=== PATIENT | male | born 1945 | race Caucasian/White ===

== ENCOUNTER 2017-11-02 07:45 | Day surgery (SDC) | payer MEDICARE, MEDICAID ==
[~2017-11-02] VITALS: Ht 172.7 cm; Wt 72.6 kg
[~2017-11-02 07:45] MED LIST: ATOR10TA PO; BENZ0.5T3 PO; CALC500T62 PO; DIVA500T3 PO; DUTA0.5C2 PO; MULT-783 PO; OLAN10TA3 PO; TAMS0.4C31 PO; ZOLP5TAB2 PO
[2017-11-02] MEDS ORDERED: LACTATED RINGERS 1,000 ML IV SCH (08:15)
[2017-11-02 08:49] LABS: BASOPHILS % 0.5 % (0.0-2.0); EOSINOPHILS % 1.4 % (0.0-5.0); HEMATOCRIT. 35.4 % (42.0-52.0); HEMOGLOBIN. 11.9 g/dL (14.0-18.0); LYMPHOCYTES % 21.5 % (20.0-50.0); MEAN CORPUSCULAR VOLUME 88.9 fL (80.0-94.0); MEAN PLATELET VOLUME 9.4 fl (7.4-10.4); MONOCYTES % 10.2 % (2.0-8.0); NEUTROPHILS % 66.4 % (40.0-76.0); PLATELET 146 x1000/uL (130-400); RED BLOOD CELL COUNT 3.98 mill/uL (4.7-6.1); RED CELL DISTRIBUTION WIDTH 13.6 % (11.6-14.6)
[2017-11-02 08:49] LABS: KETONES URINE NEGATIVE (NEGATIVE); LEUKOCYTE ESTERASE URINE 3+ (NEGATIVE); NITRITE URINE POSITIVE (NEGATIVE); OCCULT BLOOD URINE NEGATIVE (NEGATIVE); PH URINE 7.5 (4.5-8.0); PROTEIN URINE NEGATIVE (NEGATIVE); SPECIFIC GRAVITY URINE 1.013 (1.005-1.030)
[2017-11-02 08:52] LABS: CLARITY URINE TURBID (CLEAR); COLOR URINE YELLOW (YELLOW)
[2017-11-02 09:19] LABS: CHLORIDE 104 mEq/L (98-107)
[2017-11-02] MEDS ORDERED: GENTAMICIN SULF 40MG/ML 2ML VIAL ONE (09:19)
[2017-11-02] MEDS ORDERED: LIDOCAINE HCL/PF 1% 10 MG/ML 5ML VIAL ONE (09:32)
[2017-11-02] MEDS ORDERED: PROPOFOL 200MG/20ML VIAL IV ONE (09:32)
[2017-11-02] MEDS ORDERED: ONDANSETRON HCL 4MG/2ML VIAL ONE (09:43)
[2017-11-02] MEDS ORDERED: DEXAMETHASONE 4MG/ML 1ML VIAL ONE (09:43)
[2017-11-02] MEDS ORDERED: EPHEDRINE SULFATE 50MG/ML VIAL ONE (10:47)
[2017-11-02] MEDS ORDERED: SODIUM CHLORIDE 0.9% 10ML VIAL ONE (10:47)
[2017-11-02] MEDS ORDERED: ROCURONIUM BROMIDE 10MG/ML VIAL 5ML IV ONE (10:49)
[2017-11-02] MEDS ORDERED: NEOSTIGMINE METHYLSULFATE 1MG/ML 10 ML VIAL ONE (11:13)
[2017-11-02] MEDS ORDERED: GLYCOPYRROLATE 0.2 MG/ML 2ML VIAL ONE (11:13)
== END 2017-11-02 13:20 | disposition home or self-care (01) ==
LOC: OR 07:45
PROVIDERS: ATTEND Urology
DX: N35.9 Urethral stricture, unspecified (principal); I10 Essential (primary) hypertension; N39.0 Urinary tract infection, site not specified; Z79.899 Other long term (current) drug therapy; F79 Unspecified intellectual disabilities; M41.9 Scoliosis, unspecified; Z87.440 Personal history of urinary (tract) infections
CPT/HCPCS: 36415; 52276; 71045; 80048; 81003; 85025; 87077; 87086; 87186; 93005; A4216; J1100; J1580; J2405; J2710; J3490; J7120; J2704

== ENCOUNTER 2019-03-16 15:48 | Emergency (ER) | payer MEDICARE, MEDICAID ==
[~2019-03-16] VITALS: Ht 170.2 cm; Wt 77.0 kg
[~2019-03-16 15:48] MED LIST changes: -BENZ0.5T3 PO; +BENZ0.5T43 PO
[2019-03-16] MEDS ORDERED: SODIUM CHLORIDE 0.9% 1,000 ML IV ONE (16:16)
[2019-03-16 16:44] LABS: BASOPHILS % 0.2 % (0.0-2.0); EOSINOPHILS % 1.1 % (0.0-5.0); HEMOGLOBIN. 11.6 g/dL (14.0-18.0); MEAN CORPUSCULAR HEMOGLOBIN 30.6 pg (28.0-32.0); MEAN CORPUSCULAR VOLUME 89.5 fL (80.0-94.0); MEAN PLATELET VOLUME 9.5 fl (7.4-10.4); MONOCYTES % 10.7 % (2.0-8.0); PLATELET 137 x1000/uL (130-400); RED CELL DISTRIBUTION WIDTH 13.8 % (11.6-14.6)
[2019-03-16 16:46] LABS: CHLORIDE 105 mEq/L (98-107)
[2019-03-16 16:51] LABS: ETHANOL BLOOD < 10 mg/dL
[2019-03-16 18:21] LABS: CLARITY URINE CLOUDY (CLEAR); COLOR URINE YELLOW (YELLOW); KETONES URINE NEGATIVE (NEGATIVE); LEUKOCYTE ESTERASE URINE 3+ (NEGATIVE); NITRITE URINE POSITIVE (NEGATIVE); OCCULT BLOOD URINE 3+ (NEGATIVE); PROTEIN URINE NEGATIVE (NEGATIVE)
[2019-03-16 18:35] LABS: *AMPHETAMINES SCREEN URINE NEGATIVE (NEGATIVE); *BARBITURATES SCREEN URINE NEGATIVE (NEGATIVE); *BENZODIAZEPINES SCREEN URINE NEGATIVE (NEGATIVE); *COCAINE SCREEN URINE NEGATIVE (NEGATIVE)
[2019-03-16 18:36] LABS: CANNABINOID URINE SCREEN NEGATIVE (NEGATIVE); METHADONE URINE SCREEN NEGATIVE (NEGATIVE); OPIATES URINE SCREEN NEGATIVE (NEGATIVE); PHENCYCLIDINE URINE SCREEN NEGATIVE (NEGATIVE)
[2019-03-16] MEDS ORDERED: AMOXICILLIN 500 MG CAPSULE PO ONE (20:15)
[2019-03-16 20:16] VITALS: BP 144/66
== END 2019-03-16 20:28 | disposition home or self-care (01) ==
LOC: ER 16:41
DX: N30.00 Acute cystitis without hematuria (principal); R53.83 Other fatigue; E78.00 Pure hypercholesterolemia, unspecified; R62.50 Unspecified lack of expected normal physiological development in childhood; I67.82 Cerebral ischemia
CPT/HCPCS: 36415; 70450; 71045; 80053; 80305; 80320; 81003; 82962; 85025; 93005; 99284; J7030; G0480

== ENCOUNTER 2022-08-12 10:17 | Emergency (ER) | payer MEDICARE, MEDICAID ==
[~2022-08-12] VITALS: Ht 170.2 cm; Wt 67.0 kg
[~2022-08-12 10:17] MED LIST changes: -ATOR10TA PO; +LEVO-65 MT
[2022-08-12 11:00] VITALS: BP 109/48
[2022-08-12] MEDS ORDERED: LIDOCAINE HCL/PF 1% 10 MG/ML 5ML VIAL INFIL ONE (12:15)
== END 2022-08-12 13:41 | disposition home or self-care (01) ==
LOC: ER 10:17
DX: S01.111A Laceration without foreign body of right eyelid and periocular area, initial encounter (principal); M25.552 Pain in left hip; W01.10XA Fall on same level from slipping, tripping and stumbling with subsequent striking against unspecified object, initial encounter; Y93.01 Activity, walking, marching and hiking; Y92.018 Other place in single-family (private) house as the place of occurrence of the external cause
CPT/HCPCS: 12011; 70450; 72125; 72170; 72192; 99284; J3490

== ENCOUNTER 2022-10-23 08:44 | Inpatient (IN) | payer MEDICARE, MEDICAID ==
[~2022-10-23] VITALS: Ht 172.7 cm; Wt 69.1 kg
[2022-10-23 09:48] LABS: BASOPHILS % 0.2 % (0.0-2.0); EOSINOPHILS % 0.1 % (0.0-5.0); HEMATOCRIT. 23.8 % (42.0-52.0); HEMOGLOBIN. 8.1 g/dL (14.0-18.0); LYMPHOCYTES % 8.1 % (20.0-50.0); MEAN CORPUSCULAR HEMOGLOBIN 30.7 pg (28.0-32.0); MEAN CORPUSCULAR VOLUME 90.4 fL (80.0-94.0); MEAN PLATELET VOLUME 9.6 fl (7.4-10.4); MONOCYTES % 13.7 % (2.0-8.0); NEUTROPHILS % 77.9 % (40.0-76.0); PLATELET 138 x1000/uL (130-400); RED BLOOD CELL COUNT 2.63 mill/uL (4.7-6.1); RED CELL DISTRIBUTION WIDTH 13.6 % (11.6-14.6)
[2022-10-23 09:53] LABS: CHLORIDE 107 mEq/L (98-107)
[2022-10-23 10:24] LABS: CLARITY URINE CLOUDY (CLEAR); COLOR URINE RED (YELLOW); KETONES URINE NEGATIVE (NEGATIVE); LEUKOCYTE ESTERASE URINE 3+ (NEGATIVE); NITRITE URINE POSITIVE (NEGATIVE); OCCULT BLOOD URINE 1+ (NEGATIVE); PH URINE 5.5 (4.5-8.0); PROTEIN URINE 1+ (NEGATIVE); SPECIFIC GRAVITY URINE 1.012 (1.005-1.030); UROBILINOGEN URINE 0.2 E.U./dL (0.2-1.0)
[2022-10-23] MEDS ORDERED: CEFTRIAXONE 1 G PREMIX 50 ML IV NR (11:15)
[2022-10-23] MEDS ORDERED: DUTASTERIDE 0.5MG CAPSULE PO SCH (12:30)
[2022-10-23] MEDS: TAMSULOSIN HCL 0.4MG SR CAPSULE PO SCH (13:21)
[2022-10-23] MEDS: SODIUM CHLORIDE 0.45% 1,000 ML IV SCH (13:58)
[2022-10-23 16:00] VITALS: BP 96/43
[2022-10-23 16:55] VITALS: BP 96/43
[2022-10-23 20:00] VITALS: BP 85/50
[2022-10-24] VITALS (9 sets, daily range): BP systolic 90–121; BP diastolic 40–72
[2022-10-24] MEDS ORDERED: SODIUM POLYSTYRENE SULFONATE 15 G/60 ML BOT PO NR (01:00)
[2022-10-24] MEDS: SODIUM CHLORIDE 0.45% 1,000 ML IV SCH ×2 (01:20→15:05)
[2022-10-24 06:07] LABS: BASOPHILS % 0.4 % (0.0-2.0); EOSINOPHILS % 1.7 % (0.0-5.0); LYMPHOCYTES % 27.7 % (20.0-50.0); MEAN CORPUSCULAR HEMOGLOBIN 30.6 pg (28.0-32.0); MEAN CORPUSCULAR VOLUME 90.4 fL (80.0-94.0); MEAN PLATELET VOLUME 10.1 fl (7.4-10.4); MONOCYTES % 14.6 % (2.0-8.0); NEUTROPHILS % 55.6 % (40.0-76.0); PLATELET 127 x1000/uL (130-400); RED BLOOD CELL COUNT 2.21 mill/uL (4.7-6.1); RED CELL DISTRIBUTION WIDTH 13.3 % (11.6-14.6)
[2022-10-24 06:45] LABS: HEMOGLOBIN. 6.8 g/dL (14.0-18.0)
[2022-10-24] MEDS: DUTASTERIDE 0.5MG CAPSULE PO SCH (10:41)
[2022-10-24] MEDS: TAMSULOSIN HCL 0.4MG SR CAPSULE PO SCH (10:41)
[2022-10-24] MEDS ORDERED: CEFTRIAXONE 1,000 MG in DEXTROSE 5% WATER 50 ML IV SCH (12:00)
[2022-10-24] MEDS: CEFTRIAXONE 1,000 MG in DEXTROSE 5% WATER 50 ML IV SCH (15:44)
[2022-10-24 20:33] LABS: TOTAL IRON BINDING CAPACITY 192 ug/dL (250-450)
[2022-10-25] VITALS: BP 129/99
[2022-10-25 00:05] VITALS: BP 98/37
[2022-10-25 01:49] LABS: HEMATOCRIT 23.3 % (42.0-52.0)
[2022-10-25 01:58] LABS: PROTHROMBIN TIME 10.8 sec (9.6-11.0)
[2022-10-25] MEDS: SODIUM CHLORIDE 0.45% 1,000 ML IV SCH (05:36)
[2022-10-25 06:52] LABS: HEMATOCRIT. 21.4 % (42.0-52.0); HEMOGLOBIN. 7.3 g/dL (14.0-18.0); MEAN CORPUSCULAR HEMOGLOBIN 30.7 pg (28.0-32.0); MEAN CORPUSCULAR VOLUME 89.7 fL (80.0-94.0); PLATELET 119 x1000/uL (130-400); RED BLOOD CELL COUNT 2.39 mill/uL (4.7-6.1); RED CELL DISTRIBUTION WIDTH 14.1 % (11.6-14.6)
[2022-10-25 08:00] VITALS: BP 111/50
[2022-10-25] MEDS: TAMSULOSIN HCL 0.4MG SR CAPSULE PO SCH (10:39)
[2022-10-25] MEDS: DUTASTERIDE 0.5MG CAPSULE PO SCH (10:39)
[2022-10-25 10:46] LABS: PLATELET ESTIMATE SLIGHTLY DECREASED
[2022-10-25 12:00] VITALS: BP 97/57
[2022-10-25] MEDS ORDERED: SODIUM CHLORIDE 0.45% 1,000 ML IV ONE (15:15)
[2022-10-25 16:00] VITALS: BP 111/54
[2022-10-25] MEDS: CEFTRIAXONE 1,000 MG in DEXTROSE 5% WATER 50 ML IV SCH (16:41)
[2022-10-25 19:54] LABS: HEMOGLOBIN 7.1 g/dL (14.0-18.0); MEAN CORPUSCULAR HEMOGLOBIN 30.6 pg (28.0-32.0); MEAN CORPUSCULAR VOLUME 89.9 fL (80.0-94.0); PLATELET 123 x1000/uL (130-400); RED BLOOD CELL COUNT 2.32 mill/uL (4.7-6.1); RED CELL DISTRIBUTION WIDTH 14.1 % (11.6-14.6)
[2022-10-25 20:00] VITALS: BP 120/51
[2022-10-25 20:19] LABS: HEMATOCRIT 20.9 % (42.0-52.0)
[2022-10-26] VITALS: BP 118/54
[2022-10-26] MEDS: SODIUM CHLORIDE 0.45% 1,000 ML IV SCH ×2 (01:14→14:47)
[2022-10-26 04:00] VITALS: BP 127/48
[2022-10-26 07:03] LABS: BASOPHILS % 0.2 % (0.0-2.0); EOSINOPHILS % 1.8 % (0.0-5.0); HEMATOCRIT. 21.9 % (42.0-52.0); HEMOGLOBIN. 7.4 g/dL (14.0-18.0); LYMPHOCYTES % 11.1 % (20.0-50.0); MEAN CORPUSCULAR HEMOGLOBIN 30.5 pg (28.0-32.0); MEAN CORPUSCULAR VOLUME 90.9 fL (80.0-94.0); MEAN PLATELET VOLUME 10.2 fl (7.4-10.4); MONOCYTES % 10.2 % (2.0-8.0); NEUTROPHILS % 76.7 % (40.0-76.0); PLATELET 127 x1000/uL (130-400); RED BLOOD CELL COUNT 2.41 mill/uL (4.7-6.1)
[2022-10-26 08:00] VITALS: BP 132/63
[2022-10-26] MEDS: DUTASTERIDE 0.5MG CAPSULE PO SCH (08:27)
[2022-10-26] MEDS: TAMSULOSIN HCL 0.4MG SR CAPSULE PO SCH (08:28)
[2022-10-26 12:00] VITALS: BP 116/58
[2022-10-26] MEDS: CEFTRIAXONE 1,000 MG in DEXTROSE 5% WATER 50 ML IV SCH (14:47)
[2022-10-26 16:00] VITALS: BP 100/56
[2022-10-26] MEDS: OLANZAPINE 10MG TABLET PO SCH (17:48)
[2022-10-26] MEDS: DIVALPROEX SODIUM 500MG DR TABLET PO SCH (17:48)
[2022-10-26 20:00] VITALS: BP 106/58
[2022-10-26] MEDS ORDERED: TAMSULOSIN HCL 0.4MG SR CAPSULE PO SCH (21:00)
[2022-10-26] MEDS: ZOLPIDEM TARTRATE 5MG TABLET PO SCH (21:07)
[2022-10-27] VITALS: BP 115/46
[2022-10-27] MEDS: SODIUM CHLORIDE 0.45% 1,000 ML IV SCH ×2 (03:20→17:02)
[2022-10-27 04:00] VITALS: BP 144/63
[2022-10-27 06:16] LABS: BASOPHILS % 0.4 % (0.0-2.0); EOSINOPHILS % 3.2 % (0.0-5.0); HEMATOCRIT. 22.4 % (42.0-52.0); HEMOGLOBIN. 7.4 g/dL (14.0-18.0); LYMPHOCYTES % 20.7 % (20.0-50.0); MEAN CORPUSCULAR HEMOGLOBIN 30.4 pg (28.0-32.0); MEAN CORPUSCULAR VOLUME 91.4 fL (80.0-94.0); MEAN PLATELET VOLUME 9.9 fl (7.4-10.4); MONOCYTES % 10.1 % (2.0-8.0); NEUTROPHILS % 65.6 % (40.0-76.0); PLATELET 154 x1000/uL (130-400); RED BLOOD CELL COUNT 2.45 mill/uL (4.7-6.1); RED CELL DISTRIBUTION WIDTH 14.2 % (11.6-14.6)
[2022-10-27 08:23] VITALS: BP 133/51
[2022-10-27] MEDS: OLANZAPINE 10MG TABLET PO SCH ×2 (08:39→17:01)
[2022-10-27] MEDS: TAMSULOSIN HCL 0.4MG SR CAPSULE PO SCH (08:40)
[2022-10-27] MEDS: DIVALPROEX SODIUM 500MG DR TABLET PO SCH ×3 (08:40→17:01)
[2022-10-27] MEDS: MULTIVITAMINS,THER W-MINERALS TABLET PO SCH (08:40)
[2022-10-27] MEDS: DUTASTERIDE 0.5MG CAPSULE PO SCH (08:40)
[2022-10-27 11:58] VITALS: BP 88/59
[2022-10-27] MEDS: CEFTRIAXONE 1,000 MG in DEXTROSE 5% WATER 50 ML IV SCH (14:30)
[2022-10-27 16:00] VITALS: BP 118/50
[2022-10-27 20:00] VITALS: BP 110/56
[2022-10-27] MEDS: ZOLPIDEM TARTRATE 5MG TABLET PO SCH (21:54)
[2022-10-28] VITALS (10 sets, daily range): BP systolic 107–138; BP diastolic 50–78
[2022-10-28] MEDS: SODIUM CHLORIDE 0.45% 1,000 ML IV SCH (05:37)
[2022-10-28 07:23] LABS: BASOPHILS % 0.6 % (0.0-2.0); EOSINOPHILS % 4.2 % (0.0-5.0); LYMPHOCYTES % 23.9 % (20.0-50.0); MEAN CORPUSCULAR HEMOGLOBIN 30.8 pg (28.0-32.0); MEAN CORPUSCULAR VOLUME 91.2 fL (80.0-94.0); MEAN PLATELET VOLUME 9.2 fl (7.4-10.4); MONOCYTES % 9.9 % (2.0-8.0); NEUTROPHILS % 61.4 % (40.0-76.0); PLATELET 175 x1000/uL (130-400); RED BLOOD CELL COUNT 2.23 mill/uL (4.7-6.1); RED CELL DISTRIBUTION WIDTH 13.5 % (11.6-14.6)
[2022-10-28 08:02] LABS: HEMATOCRIT. 20.4 % (42.0-52.0); HEMOGLOBIN. 6.9 g/dL (14.0-18.0)
[2022-10-28] MEDS: TAMSULOSIN HCL 0.4MG SR CAPSULE PO SCH (08:51)
[2022-10-28] MEDS: DIVALPROEX SODIUM 500MG DR TABLET PO SCH ×3 (08:51→17:36)
[2022-10-28] MEDS: OLANZAPINE 10MG TABLET PO SCH ×2 (08:52→17:36)
[2022-10-28] MEDS: MULTIVITAMINS,THER W-MINERALS TABLET PO SCH (08:52)
[2022-10-28] MEDS: DUTASTERIDE 0.5MG CAPSULE PO SCH (08:52)
[2022-10-28] MEDS: CEFTRIAXONE 1,000 MG in DEXTROSE 5% WATER 50 ML IV SCH (14:13)
[2022-10-28 21:31] LABS: BASOPHILS % 0.9 % (0.0-2.0); HEMATOCRIT. 25.9 % (42.0-52.0); HEMOGLOBIN. 8.7 g/dL (14.0-18.0); LYMPHOCYTES % 27.4 % (20.0-50.0); MEAN CORPUSCULAR HEMOGLOBIN 30.7 pg (28.0-32.0); MEAN CORPUSCULAR VOLUME 91.5 fL (80.0-94.0); MEAN PLATELET VOLUME 9.2 fl (7.4-10.4); NEUTROPHILS % 54.7 % (40.0-76.0); PLATELET 186 x1000/uL (130-400); RED BLOOD CELL COUNT 2.83 mill/uL (4.7-6.1); RED CELL DISTRIBUTION WIDTH 14.2 % (11.6-14.6)
[2022-10-28] MEDS: ZOLPIDEM TARTRATE 5MG TABLET PO SCH (21:34)
[2022-10-29 07:53] LABS: BASOPHILS % 0.7 % (0.0-2.0); EOSINOPHILS % 5.2 % (0.0-5.0); HEMATOCRIT. 27.4 % (42.0-52.0); LYMPHOCYTES % 23.7 % (20.0-50.0); MEAN CORPUSCULAR HEMOGLOBIN 29.8 pg (28.0-32.0); MEAN PLATELET VOLUME 8.7 fl (7.4-10.4); MONOCYTES % 9.2 % (2.0-8.0); NEUTROPHILS % 61.2 % (40.0-76.0); PLATELET 212 x1000/uL (130-400); RED BLOOD CELL COUNT 3.01 mill/uL (4.7-6.1); RED CELL DISTRIBUTION WIDTH 14.2 % (11.6-14.6)
[2022-10-29] MEDS: MULTIVITAMINS,THER W-MINERALS TABLET PO SCH (08:48)
[2022-10-29] MEDS: DIVALPROEX SODIUM 500MG DR TABLET PO SCH ×3 (08:48→16:53)
[2022-10-29] MEDS: OLANZAPINE 10MG TABLET PO SCH ×2 (08:48→16:53)
[2022-10-29] MEDS: TAMSULOSIN HCL 0.4MG SR CAPSULE PO SCH (08:48)
[2022-10-29] MEDS: DUTASTERIDE 0.5MG CAPSULE PO SCH (08:48)
[2022-10-29] MEDS: SODIUM CHLORIDE 0.45% 1,000 ML IV SCH ×3 (08:48→22:06)
[2022-10-29] MEDS ORDERED: SODIUM POLYSTYRENE SULFONATE 15 G/60 ML BOT PO NR (09:15)
[2022-10-29] MEDS: CEFTRIAXONE 1,000 MG in DEXTROSE 5% WATER 50 ML IV SCH (13:54)
[2022-10-29 20:00] VITALS: BP 91/53
[2022-10-29] MEDS: ZOLPIDEM TARTRATE 5MG TABLET PO SCH (22:06)
== END 2022-10-30 01:24 | disposition home health service (06) | DRG 689 ==
LOC: ER 08:44 → 6EST 12:00 → EDBEDREQ 12:02 → EDBEDREQTM 12:02
PROVIDERS: ADMIT Internal Medicine; ATTEND Internal Medicine
PROC: 30233N1 Transfusion of Nonautologous Red Blood Cells into Peripheral Vein, Percutaneous Approach (ICD-10-PCS; principal; 2022-10-24)
DX: N30.91 Cystitis, unspecified with hematuria (principal); N17.0 Acute kidney failure with tubular necrosis; E44.0 Moderate protein-calorie malnutrition; E87.0 Hyperosmolality and hypernatremia; G40.909 Epilepsy, unspecified, not intractable, without status epilepticus; Z68.23 Body mass index [BMI] 23.0-23.9, adult; K21.9 Gastro-esophageal reflux disease without esophagitis; R62.50 Unspecified lack of expected normal physiological development in childhood; E78.00 Pure hypercholesterolemia, unspecified; D64.9 Anemia, unspecified; E87.5 Hyperkalemia; F20.9 Schizophrenia, unspecified; Z87.440 Personal history of urinary (tract) infections
CPT/HCPCS: 36415; 74176; 80048; 80053; 81003; 82728; 83540; 83550; 84132; 85014; 85018; 85025; 85027; 85049; 85384; 86850; 86900; 86920; 97110; 97162; 99285; J0696; J7060; P9016

== ENCOUNTER 2023-06-10 16:24 | Inpatient (IN) | payer MEDICARE, MEDICAID ==
[~2023-06-10] VITALS: Ht 175.3 cm; Wt 73.9 kg
[~2023-06-10 16:24] MED LIST changes: +ASCO500T20 PO; +ATOR10TA69 PO; +BENZ0.5T3 PO; -BENZ0.5T43 PO; +CHOL125C6 PO; +DIPH50CA38 PO; +FAMO20TA8 PO; +FINA5TAB11 PO; +LEVE500S9 PO; -LEVO-65 MT; +LEVO75TA7 PO; +VALP250S4 PO
[2023-06-10 17:00] VITALS: BP 115/62; PULSE 94; RESP 18; TEMP 97.7
[2023-06-10] MEDS ORDERED: HYDROCODONE/ACETAMINOPHEN 5/325MG TABLET PO PRN (17:15)
[2023-06-10] MEDS ORDERED: NALOXONE HCL 0.4MG/ML VIAL IV PRN (17:30)
[2023-06-10 17:38] VITALS: BP 115/62; PULSE 94; RESP 18; TEMP 97.7
[2023-06-10] MEDS: OLANZAPINE 10MG TABLET PO SCH (18:51)
[2023-06-10] MEDS: BENZTROPINE MESYLATE 0.5MG TABLET PO SCH (18:51)
[2023-06-10 20:00] VITALS: BP 117/62; PULSE 95; RESP 16; TEMP 97.2
[2023-06-10] MEDS: DIVALPROEX SODIUM 125MG SPRINKLE CAPSULE PO SCH (21:21)
[2023-06-11] MEDS: DIVALPROEX SODIUM 125MG SPRINKLE CAPSULE PO SCH ×3 (06:52→21:55)
[2023-06-11 08:00] VITALS: BP 125/59; PULSE 84; RESP 19; TEMP 97.9
[2023-06-11] MEDS: DUTASTERIDE 0.5MG CAPSULE PO SCH (08:45)
[2023-06-11] MEDS: MULTIVITAMINS,THER W-MINERALS TABLET PO SCH (08:45)
[2023-06-11] MEDS: BENZTROPINE MESYLATE 0.5MG TABLET PO SCH ×2 (08:46→17:05)
[2023-06-11] MEDS: OLANZAPINE 10MG TABLET PO SCH ×2 (08:46→17:05)
[2023-06-11] MEDS: TAMSULOSIN HCL 0.4MG SR CAPSULE PO SCH (08:46)
[2023-06-11 08:49] LABS: BASOPHILS % 0.3 % (0.0-2.0); EOSINOPHILS % 2.1 % (0.0-5.0); HEMATOCRIT. 25.3 % (42.0-52.0); HEMOGLOBIN. 8.5 g/dL (14.0-18.0); LYMPHOCYTES % 11.2 % (20.0-50.0); MEAN CORPUSCULAR HEMOGLOBIN 30.6 pg (28.0-32.0); MEAN CORPUSCULAR HGB CONC 33.6 g/dL (31.0-37.0); MEAN CORPUSCULAR VOLUME 91.1 fL (80.0-94.0); MEAN PLATELET VOLUME 8.4 fl (7.4-10.4); MONOCYTES % 9.1 % (2.0-8.0); NEUTROPHILS % 77.3 % (40.0-76.0); PLATELET 480 x1000/uL (130-400); RED BLOOD CELL COUNT 2.78 mill/uL (4.7-6.1); RED CELL DISTRIBUTION WIDTH 14.1 % (11.6-14.6); WHITE BLOOD COUNT 10.6 x1000/uL (4.5-11.0)
[2023-06-11 08:59] LABS: CHLORIDE 111 mEq/L (98-107); INDEX HEMOLYSI 1 (1-3); INDEX ICTERIC 1 (1-4); INDEX LIPEMIC 1 (1-3); POTASSIUM 4.3 mEq/L (3.5-5.1); SODIUM 141 mEq/L (136-145)
[2023-06-11] MEDS ORDERED: DOCUSATE SODIUM 250MG CAPSULE PO SCH (09:00)
[2023-06-11 09:07] LABS: ALANINE AMINOTRANSFERASE 13 IU/L (13-61); ALBUMIN 2.1 g/dL (3.4-5.0); ASPARTATE AMINOTRANSFERASE 18 IU/L (15-37); BILIRUBIN TOTAL 0.5 mg/dL (0.1-1.0); CALCIUM 8.2 mg/dL (8.5-10.1); CARBON DIOXIDE 28 mEq/L (21-32); CREATININE 1.2 mg/dL (0.6-1.3); GLUCOSE 90 mg/dL (70-105); PROTEIN TOTAL 6.1 g/dL (6.0-8.3); UREA NITROGEN BLOOD 38 mg/dL (7-21)
[2023-06-11 09:45] LABS: PREALBUMIN 10.5 mg/dL (20.0-40.0)
[2023-06-11 12:00] VITALS: BP 100/61; PULSE 99; RESP 20; TEMP 97.9
[2023-06-11] MEDS: FERROUS SULFATE 325MG TABLET PO SCH ×2 (12:41→17:05)
[2023-06-11] MEDS: DOCUSATE SODIUM 250MG CAPSULE PO SCH (17:05)
[2023-06-11 20:15] VITALS: BP 141/62; PULSE 63; RESP 17; TEMP 97.4
[2023-06-12] MEDS: DIVALPROEX SODIUM 125MG SPRINKLE CAPSULE PO SCH ×3 (06:00→21:36)
[2023-06-12 07:07] LABS: HEMATOCRIT. 25.6 % (42.0-52.0); HEMOGLOBIN. 8.4 g/dL (14.0-18.0); MEAN CORPUSCULAR HEMOGLOBIN 29.8 pg (28.0-32.0); MEAN CORPUSCULAR HGB CONC 32.8 g/dL (31.0-37.0); MEAN CORPUSCULAR VOLUME 90.9 fL (80.0-94.0); MEAN PLATELET VOLUME 7.9 fl (7.4-10.4); PLATELET 450 x1000/uL (130-400); RED BLOOD CELL COUNT 2.82 mill/uL (4.7-6.1); RED CELL DISTRIBUTION WIDTH 13.7 % (11.6-14.6); WHITE BLOOD COUNT 16.7 x1000/uL (4.5-11.0)
[2023-06-12 07:08] LABS: DIFFERENTIAL COMMENT 1
[2023-06-12 08:00] VITALS: BP 141/38; PULSE 81; RESP 20; TEMP 97.3
[2023-06-12 10:09] LABS: PLATELET ESTIMATE INCREASED
[2023-06-12] MEDS: DOCUSATE SODIUM 250MG CAPSULE PO SCH ×2 (12:50→18:53)
[2023-06-12] MEDS: FERROUS SULFATE 325MG TABLET PO SCH ×2 (12:50→18:53)
[2023-06-12] MEDS: BENZTROPINE MESYLATE 0.5MG TABLET PO SCH ×2 (12:51→18:53)
[2023-06-12] MEDS: DUTASTERIDE 0.5MG CAPSULE PO SCH (12:51)
[2023-06-12] MEDS: OLANZAPINE 10MG TABLET PO SCH ×2 (12:51→18:53)
[2023-06-12] MEDS: TAMSULOSIN HCL 0.4MG SR CAPSULE PO SCH (12:51)
[2023-06-12] MEDS: MULTIVITAMINS,THER W-MINERALS TABLET PO SCH (12:51)
[2023-06-12] MEDS: LEVOFLOXACIN 500MG TABLET PO SCH (14:51)
[2023-06-12 22:51] VITALS: BP 96/52; PULSE 60; RESP 18; TEMP 97.7
[2023-06-13 00:13] VITALS: BP 119/61; PULSE 98
[2023-06-13 00:25] LABS: CLARITY URINE CLEAR (CLEAR); COLOR URINE YELLOW (YELLOW); GLUCOSE URINE NEGATIVE (NEGATIVE); KETONES URINE NEGATIVE (NEGATIVE); LEUKOCYTE ESTERASE URINE 3+ (NEGATIVE); NITRITE URINE NEGATIVE (NEGATIVE); OCCULT BLOOD URINE 2+ (NEGATIVE); PH URINE 6.5 (4.5-8.0); PROTEIN URINE NEGATIVE (NEGATIVE); SPECIFIC GRAVITY URINE 1.012 (1.005-1.030)
[2023-06-13 00:28] LABS: YEAST URINE NONE SEEN
[2023-06-13 02:29] LABS: SQUAMOUS EPITHELIAL CELL URINE FEW /lpf (RARE/1+)
[2023-06-13 02:32] LABS: WBC URINE 25-50 /hpf (0-2)
[2023-06-13 02:33] LABS: RBC URINE 0-2 /hpf (0-2)
[2023-06-13 02:35] LABS: BACTERIA URINE TRACE
[2023-06-13] MEDS: DIVALPROEX SODIUM 125MG SPRINKLE CAPSULE PO SCH ×3 (05:25→21:21)
[2023-06-13 07:15] LABS: CHLORIDE 106 mEq/L (98-107); INDEX HEMOLYSI 1 (1-3); INDEX ICTERIC 1 (1-4); INDEX LIPEMIC 1 (1-3); POTASSIUM 5.1 mEq/L (3.5-5.1); SODIUM 139 mEq/L (136-145)
[2023-06-13 07:26] LABS: ALANINE AMINOTRANSFERASE 14 IU/L (13-61); ALBUMIN 1.8 g/dL (3.4-5.0); ASPARTATE AMINOTRANSFERASE 20 IU/L (15-37); BILIRUBIN TOTAL 0.6 mg/dL (0.1-1.0); CALCIUM 7.5 mg/dL (8.5-10.1); CARBON DIOXIDE 29 mEq/L (21-32); CREATININE 1.2 mg/dL (0.6-1.3); GLUCOSE 88 mg/dL (70-105); UREA NITROGEN BLOOD 33 mg/dL (7-21)
[2023-06-13 07:41] LABS: BASOPHILS % 0.3 % (0.0-2.0); EOSINOPHILS % 3.2 % (0.0-5.0); HEMATOCRIT. 23.9 % (42.0-52.0); LYMPHOCYTES % 11.5 % (20.0-50.0); MEAN CORPUSCULAR HEMOGLOBIN 30.7 pg (28.0-32.0); MEAN CORPUSCULAR HGB CONC 33.5 g/dL (31.0-37.0); MEAN CORPUSCULAR VOLUME 91.4 fL (80.0-94.0); MEAN PLATELET VOLUME 8.1 fl (7.4-10.4); PLATELET 426 x1000/uL (130-400); RED BLOOD CELL COUNT 2.62 mill/uL (4.7-6.1); RED CELL DISTRIBUTION WIDTH 13.7 % (11.6-14.6); WHITE BLOOD COUNT 10.6 x1000/uL (4.5-11.0)
[2023-06-13 08:00] VITALS: BP 109/55; PULSE 82; RESP 19; TEMP 97.7
[2023-06-13 08:04] LABS: FOLIC ACID (FOLATE) SERUM 14.9 ng/mL (>5.38)
[2023-06-13] MEDS: MULTIVITAMINS,THER W-MINERALS TABLET PO SCH (08:18)
[2023-06-13] MEDS: TAMSULOSIN HCL 0.4MG SR CAPSULE PO SCH (08:19)
[2023-06-13] MEDS: DUTASTERIDE 0.5MG CAPSULE PO SCH (08:19)
[2023-06-13] MEDS: FERROUS SULFATE 325MG TABLET PO SCH ×2 (08:19→17:02)
[2023-06-13] MEDS: DOCUSATE SODIUM 250MG CAPSULE PO SCH ×2 (08:19→17:02)
[2023-06-13] MEDS: OLANZAPINE 10MG TABLET PO SCH ×2 (08:19→17:03)
[2023-06-13] MEDS: BENZTROPINE MESYLATE 0.5MG TABLET PO SCH ×2 (08:19→17:02)
[2023-06-13] MEDS: LEVOFLOXACIN 500MG TABLET PO SCH (10:56)
[2023-06-13 20:05] VITALS: BP 136/59; PULSE 58; RESP 18; TEMP 97.2
[2023-06-14] MEDS: DIVALPROEX SODIUM 125MG SPRINKLE CAPSULE PO SCH ×2 (06:00→22:19)
[2023-06-14 08:00] VITALS: BP 124/55; PULSE 87; TEMP 94.7
[2023-06-14] MEDS: LEVOFLOXACIN 500MG TABLET PO SCH (11:06)
[2023-06-14] MEDS: DOCUSATE SODIUM 250MG CAPSULE PO SCH ×2 (11:07→19:07)
[2023-06-14] MEDS: DUTASTERIDE 0.5MG CAPSULE PO SCH (11:07)
[2023-06-14] MEDS: MULTIVITAMINS,THER W-MINERALS TABLET PO SCH (11:07)
[2023-06-14] MEDS: OLANZAPINE 10MG TABLET PO SCH ×2 (11:07→19:06)
[2023-06-14] MEDS: BENZTROPINE MESYLATE 0.5MG TABLET PO SCH ×2 (11:07→19:07)
[2023-06-14] MEDS: FERROUS SULFATE 325MG TABLET PO SCH ×2 (11:07→19:07)
[2023-06-14] MEDS: TAMSULOSIN HCL 0.4MG SR CAPSULE PO SCH (11:13)
[2023-06-14 20:00] VITALS: BP 114/81; PULSE 87; PULSE 97; RESP 18; TEMP 97.2; TEMP 97.6
[2023-06-14 23:18] VITALS: BP 114/81; PULSE 97; RESP 18; TEMP 97.6
[2023-06-15] MEDS: DIVALPROEX SODIUM 125MG SPRINKLE CAPSULE PO SCH ×3 (06:19→21:48)
[2023-06-15 06:40] LABS: BASOPHILS % 0.3 % (0.0-2.0); EOSINOPHILS % 2.3 % (0.0-5.0); HEMATOCRIT. 26.5 % (42.0-52.0); HEMOGLOBIN. 8.6 g/dL (14.0-18.0); LYMPHOCYTES % 14.5 % (20.0-50.0); MEAN CORPUSCULAR HEMOGLOBIN 29.9 pg (28.0-32.0); MEAN CORPUSCULAR HGB CONC 32.4 g/dL (31.0-37.0); MEAN CORPUSCULAR VOLUME 92.4 fL (80.0-94.0); MEAN PLATELET VOLUME 8.2 fl (7.4-10.4); MONOCYTES % 8.5 % (2.0-8.0); NEUTROPHILS % 74.4 % (40.0-76.0); PLATELET 408 x1000/uL (130-400); RED BLOOD CELL COUNT 2.87 mill/uL (4.7-6.1); RED CELL DISTRIBUTION WIDTH 13.7 % (11.6-14.6); WHITE BLOOD COUNT 9.3 x1000/uL (4.5-11.0)
[2023-06-15 08:00] VITALS: BP 141/71; PULSE 102; RESP 18; TEMP 97.8
[2023-06-15] MEDS: BENZTROPINE MESYLATE 0.5MG TABLET PO SCH ×2 (09:33→16:59)
[2023-06-15] MEDS: MULTIVITAMINS,THER W-MINERALS TABLET PO SCH (09:33)
[2023-06-15] MEDS: FERROUS SULFATE 325MG TABLET PO SCH ×2 (09:33→16:59)
[2023-06-15] MEDS: OLANZAPINE 10MG TABLET PO SCH ×2 (09:33→16:59)
[2023-06-15] MEDS: DUTASTERIDE 0.5MG CAPSULE PO SCH (09:34)
[2023-06-15] MEDS: TAMSULOSIN HCL 0.4MG SR CAPSULE PO SCH (09:34)
[2023-06-15] MEDS: DOCUSATE SODIUM 250MG CAPSULE PO SCH ×2 (09:34→16:59)
[2023-06-15 10:01] LABS: CALCIUM 8.2 mg/dL (8.5-10.1)
[2023-06-15 10:05] LABS: CREATININE 1.3 mg/dL (0.6-1.3)
[2023-06-15] MEDS: LEVOFLOXACIN 500MG TABLET PO SCH (10:45)
[2023-06-15 20:00] VITALS: BP 121/76; PULSE 97; RESP 18; TEMP 97.9
[2023-06-16] MEDS: DIVALPROEX SODIUM 125MG SPRINKLE CAPSULE PO SCH ×3 (06:31→22:00)
[2023-06-16 08:00] VITALS: BP 101/65; PULSE 65; RESP 17; TEMP 97.3
[2023-06-16] MEDS: DOCUSATE SODIUM 250MG CAPSULE PO SCH ×2 (08:32→18:17)
[2023-06-16] MEDS: MULTIVITAMINS,THER W-MINERALS TABLET PO SCH (08:32)
[2023-06-16] MEDS: FERROUS SULFATE 325MG TABLET PO SCH ×2 (08:32→18:17)
[2023-06-16] MEDS: OLANZAPINE 10MG TABLET PO SCH ×2 (08:32→18:17)
[2023-06-16] MEDS: BENZTROPINE MESYLATE 0.5MG TABLET PO SCH ×2 (08:32→17:00)
[2023-06-16] MEDS: TAMSULOSIN HCL 0.4MG SR CAPSULE PO SCH (08:34)
[2023-06-16] MEDS: DUTASTERIDE 0.5MG CAPSULE PO SCH (08:35)
[2023-06-16] MEDS: LEVOFLOXACIN 500MG TABLET PO SCH (12:36)
[2023-06-16 20:16] VITALS: BP 134/81; PULSE 76; RESP 18; TEMP 97.6
[2023-06-17] MEDS: DIVALPROEX SODIUM 125MG SPRINKLE CAPSULE PO SCH ×3 (06:30→21:22)
[2023-06-17 08:00] VITALS: BP 125/68; PULSE 88; RESP 18; TEMP 96.9
[2023-06-17] MEDS: MULTIVITAMINS,THER W-MINERALS TABLET PO SCH (08:38)
[2023-06-17] MEDS: OLANZAPINE 10MG TABLET PO SCH ×2 (08:38→16:51)
[2023-06-17] MEDS: FERROUS SULFATE 325MG TABLET PO SCH ×2 (08:38→16:51)
[2023-06-17] MEDS: BENZTROPINE MESYLATE 0.5MG TABLET PO SCH ×2 (08:38→16:51)
[2023-06-17] MEDS: DUTASTERIDE 0.5MG CAPSULE PO SCH (08:39)
[2023-06-17] MEDS: TAMSULOSIN HCL 0.4MG SR CAPSULE PO SCH (08:39)
[2023-06-17] MEDS: DOCUSATE SODIUM 250MG CAPSULE PO SCH ×3 (08:39→16:51)
[2023-06-17] MEDS: LEVOFLOXACIN 500MG TABLET PO SCH (10:41)
[2023-06-17] MEDS ORDERED: NALOXONE HCL 0.4MG/ML VIAL IV PRN (13:45)
[2023-06-17 20:00] VITALS: BP 121/65; PULSE 92; RESP 17; TEMP 98.1
[2023-06-18] MEDS: DIVALPROEX SODIUM 125MG SPRINKLE CAPSULE PO SCH ×3 (06:00→21:14)
[2023-06-18 08:00] VITALS: BP 105/63; PULSE 95; RESP 17; TEMP 97.1
[2023-06-18 08:04] LABS: BASOPHILS % 0.4 % (0.0-2.0); EOSINOPHILS % 2.3 % (0.0-5.0); HEMATOCRIT. 26.2 % (42.0-52.0); HEMOGLOBIN. 8.7 g/dL (14.0-18.0); LYMPHOCYTES % 17.3 % (20.0-50.0); MEAN CORPUSCULAR HEMOGLOBIN 30.8 pg (28.0-32.0); MEAN CORPUSCULAR HGB CONC 33.4 g/dL (31.0-37.0); MEAN PLATELET VOLUME 8.5 fl (7.4-10.4); MONOCYTES % 7.8 % (2.0-8.0); NEUTROPHILS % 72.2 % (40.0-76.0); PLATELET 325 x1000/uL (130-400); RED BLOOD CELL COUNT 2.84 mill/uL (4.7-6.1); RED CELL DISTRIBUTION WIDTH 13.7 % (11.6-14.6); WHITE BLOOD COUNT 8.6 x1000/uL (4.5-11.0)
[2023-06-18] MEDS: DUTASTERIDE 0.5MG CAPSULE PO SCH (09:01)
[2023-06-18] MEDS: OLANZAPINE 10MG TABLET PO SCH ×2 (09:01→17:37)
[2023-06-18] MEDS: FERROUS SULFATE 325MG TABLET PO SCH ×2 (09:02→17:37)
[2023-06-18] MEDS: BENZTROPINE MESYLATE 0.5MG TABLET PO SCH ×2 (09:02→17:37)
[2023-06-18] MEDS: MULTIVITAMINS,THER W-MINERALS TABLET PO SCH (09:02)
[2023-06-18] MEDS: TAMSULOSIN HCL 0.4MG SR CAPSULE PO SCH (09:02)
[2023-06-18] MEDS: DOCUSATE SODIUM 250MG CAPSULE PO SCH ×2 (09:02→17:37)
[2023-06-18 09:16] LABS: POTASSIUM 4.8 mEq/L (3.5-5.1)
[2023-06-18 09:25] LABS: CALCIUM 7.6 mg/dL (8.5-10.1); CREATININE 1.3 mg/dL (0.6-1.3)
[2023-06-18] MEDS: HYDROCODONE/ACETAMINOPHEN 5/325MG TABLET PO PRN (11:11)
[2023-06-18] MEDS: LEVOFLOXACIN 500MG TABLET PO SCH (11:11)
[2023-06-18 20:00] VITALS: BP 105/68; PULSE 88; RESP 18; TEMP 97
[2023-06-19] MEDS: HYDROCODONE/ACETAMINOPHEN 5/325MG TABLET PO PRN (03:17)
[2023-06-19] MEDS: DIVALPROEX SODIUM 125MG SPRINKLE CAPSULE PO SCH ×3 (05:24→21:28)
[2023-06-19 08:00] VITALS: BP 122/66; PULSE 79; RESP 20; TEMP 98
[2023-06-19] MEDS: TAMSULOSIN HCL 0.4MG SR CAPSULE PO SCH (09:00)
[2023-06-19] MEDS: DOCUSATE SODIUM 250MG CAPSULE PO SCH ×2 (11:01→17:00)
[2023-06-19] MEDS: BENZTROPINE MESYLATE 0.5MG TABLET PO SCH ×2 (11:01→18:34)
[2023-06-19] MEDS: FERROUS SULFATE 325MG TABLET PO SCH ×2 (11:01→18:34)
[2023-06-19] MEDS: OLANZAPINE 10MG TABLET PO SCH ×2 (11:01→18:34)
[2023-06-19] MEDS: MULTIVITAMINS,THER W-MINERALS TABLET PO SCH (11:01)
[2023-06-19] MEDS: LEVOFLOXACIN 500MG TABLET PO SCH (11:01)
[2023-06-19] MEDS: DUTASTERIDE 0.5MG CAPSULE PO SCH (11:02)
[2023-06-19 20:00] VITALS: BP 95/56; PULSE 98; RESP 16; TEMP 97.8
[2023-06-20] MEDS: DIVALPROEX SODIUM 125MG SPRINKLE CAPSULE PO SCH ×3 (06:00→22:17)
[2023-06-20 08:00] VITALS: BP 113/58; PULSE 84; RESP 20; TEMP 97.4
[2023-06-20] MEDS: DOCUSATE SODIUM 250MG CAPSULE PO SCH ×2 (09:00→17:00)
[2023-06-20] MEDS: TAMSULOSIN HCL 0.4MG SR CAPSULE PO SCH (09:55)
[2023-06-20] MEDS: BENZTROPINE MESYLATE 0.5MG TABLET PO SCH ×2 (09:55→17:40)
[2023-06-20] MEDS: DUTASTERIDE 0.5MG CAPSULE PO SCH (09:56)
[2023-06-20] MEDS: MULTIVITAMINS,THER W-MINERALS TABLET PO SCH (09:56)
[2023-06-20] MEDS: FERROUS SULFATE 325MG TABLET PO SCH ×2 (09:56→17:40)
[2023-06-20] MEDS: HYDROCODONE/ACETAMINOPHEN 5/325MG TABLET PO PRN (09:56)
[2023-06-20] MEDS: OLANZAPINE 10MG TABLET PO SCH ×2 (09:56→17:40)
[2023-06-20 20:00] VITALS: BP 106/56; PULSE 92; RESP 18; TEMP 98.1
[2023-06-21] MEDS: DIVALPROEX SODIUM 125MG SPRINKLE CAPSULE PO SCH ×3 (06:32→21:09)
[2023-06-21 08:00] VITALS: PULSE 94; RESP 16; TEMP 97.6
[2023-06-21] MEDS: DOCUSATE SODIUM 250MG CAPSULE PO SCH ×2 (09:00→18:06)
[2023-06-21] MEDS: MULTIVITAMINS,THER W-MINERALS TABLET PO SCH (09:00)
[2023-06-21] MEDS: FERROUS SULFATE 325MG TABLET PO SCH ×2 (09:08→18:06)
[2023-06-21] MEDS: DUTASTERIDE 0.5MG CAPSULE PO SCH (09:08)
[2023-06-21] MEDS: OLANZAPINE 10MG TABLET PO SCH ×2 (09:08→18:06)
[2023-06-21] MEDS: BENZTROPINE MESYLATE 0.5MG TABLET PO SCH ×2 (09:09→18:06)
[2023-06-21] MEDS: TAMSULOSIN HCL 0.4MG SR CAPSULE PO SCH (09:10)
[2023-06-21] MEDS: HYDROCODONE/ACETAMINOPHEN 5/325MG TABLET PO PRN (09:11)
[2023-06-21 20:00] VITALS: BP 109/60; PULSE 89; RESP 18; TEMP 98.1
[2023-06-22] MEDS: DIVALPROEX SODIUM 125MG SPRINKLE CAPSULE PO SCH ×3 (05:47→21:37)
[2023-06-22 08:00] VITALS: BP 99/50; PULSE 96; RESP 18; TEMP 97.5
[2023-06-22] MEDS: MULTIVITAMINS,THER W-MINERALS TABLET PO SCH (09:23)
[2023-06-22] MEDS: DOCUSATE SODIUM 250MG CAPSULE PO SCH ×2 (09:23→17:42)
[2023-06-22] MEDS: FERROUS SULFATE 325MG TABLET PO SCH ×2 (09:23→17:42)
[2023-06-22] MEDS: BENZTROPINE MESYLATE 0.5MG TABLET PO SCH ×2 (09:23→17:42)
[2023-06-22] MEDS: OLANZAPINE 10MG TABLET PO SCH ×2 (09:23→17:42)
[2023-06-22] MEDS: DUTASTERIDE 0.5MG CAPSULE PO SCH (09:23)
[2023-06-22] MEDS: TAMSULOSIN HCL 0.4MG SR CAPSULE PO SCH (09:24)
[2023-06-22 20:00] VITALS: BP 111/60; PULSE 87; RESP 17; TEMP 98.1
[2023-06-22] MEDS: LIDOCAINE 5% PATCH TOP SCH (21:38)
[2023-06-23] VITALS: BP 100/55; PULSE 69; RESP 18; TEMP 97.9
[2023-06-23 04:00] VITALS: BP 115/54; PULSE 67; RESP 18; TEMP 97.3
[2023-06-23] MEDS: DIVALPROEX SODIUM 125MG SPRINKLE CAPSULE PO SCH ×3 (05:33→21:27)
[2023-06-23 07:08] LABS: BASOPHILS % 0.4 % (0.0-2.0); EOSINOPHILS % 2.6 % (0.0-5.0); HEMATOCRIT. 27.7 % (42.0-52.0); HEMOGLOBIN. 9.2 g/dL (14.0-18.0); LYMPHOCYTES % 22.1 % (20.0-50.0); MEAN CORPUSCULAR HEMOGLOBIN 30.5 pg (28.0-32.0); MEAN CORPUSCULAR HGB CONC 33.3 g/dL (31.0-37.0); MEAN CORPUSCULAR VOLUME 91.5 fL (80.0-94.0); MEAN PLATELET VOLUME 8.8 fl (7.4-10.4); MONOCYTES % 7.9 % (2.0-8.0); PLATELET 225 x1000/uL (130-400); RED BLOOD CELL COUNT 3.03 mill/uL (4.7-6.1); RED CELL DISTRIBUTION WIDTH 13.9 % (11.6-14.6); WHITE BLOOD COUNT 6.3 x1000/uL (4.5-11.0)
[2023-06-23 08:00] VITALS: BP 148/73; PULSE 98; RESP 17; TEMP 97.5
[2023-06-23 08:19] LABS: CALCIUM 8.1 mg/dL (8.5-10.1); CARBON DIOXIDE 30 mEq/L (21-32); CHLORIDE 108 mEq/L (98-107); INDEX HEMOLYSI 1 (1-3); INDEX ICTERIC 1 (1-4); INDEX LIPEMIC 1 (1-3); POTASSIUM 4.6 mEq/L (3.5-5.1); SODIUM 141 mEq/L (136-145); UREA NITROGEN BLOOD 28 mg/dL (7-21)
[2023-06-23 08:22] LABS: CREATININE 1.1 mg/dL (0.6-1.3); GLUCOSE 85 mg/dL (70-105)
[2023-06-23] MEDS: DOCUSATE SODIUM 250MG CAPSULE PO SCH ×2 (09:00→19:08)
[2023-06-23] MEDS: FERROUS SULFATE 325MG TABLET PO SCH ×2 (09:00→19:08)
[2023-06-23] MEDS: MULTIVITAMINS,THER W-MINERALS TABLET PO SCH (09:00)
[2023-06-23] MEDS: TAMSULOSIN HCL 0.4MG SR CAPSULE PO SCH (09:00)
[2023-06-23] MEDS: DUTASTERIDE 0.5MG CAPSULE PO SCH (09:00)
[2023-06-23] MEDS: OLANZAPINE 10MG TABLET PO SCH ×2 (09:00→19:08)
[2023-06-23] MEDS: BENZTROPINE MESYLATE 0.5MG TABLET PO SCH ×2 (09:00→19:08)
[2023-06-23] MEDS: LIDOCAINE 5% PATCH TOP SCH (09:28)
[2023-06-23] MEDS: DICLOFENAC SODIUM 1% GEL 50GM TOP SCH ×3 (09:28→17:00)
[2023-06-23 20:00] VITALS: BP 115/57; PULSE 85; RESP 18; TEMP 98.2
[2023-06-24] MEDS: DIVALPROEX SODIUM 125MG SPRINKLE CAPSULE PO SCH ×3 (05:03→23:02)
[2023-06-24 08:00] VITALS: BP 119/73; PULSE 85; RESP 17; TEMP 97.4
[2023-06-24] MEDS: LIDOCAINE 5% PATCH TOP SCH (09:00)
[2023-06-24] MEDS: FERROUS SULFATE 325MG TABLET PO SCH ×2 (09:23→16:54)
[2023-06-24] MEDS: BENZTROPINE MESYLATE 0.5MG TABLET PO SCH ×2 (09:23→16:54)
[2023-06-24] MEDS: OLANZAPINE 10MG TABLET PO SCH ×2 (09:23→16:54)
[2023-06-24] MEDS: DUTASTERIDE 0.5MG CAPSULE PO SCH (09:23)
[2023-06-24] MEDS: DOCUSATE SODIUM 250MG CAPSULE PO SCH ×2 (09:23→16:54)
[2023-06-24] MEDS: TAMSULOSIN HCL 0.4MG SR CAPSULE PO SCH (09:24)
[2023-06-24] MEDS: MULTIVITAMINS,THER W-MINERALS TABLET PO SCH (09:24)
[2023-06-24] MEDS: DICLOFENAC SODIUM 1% GEL 50GM TOP SCH ×3 (09:31→16:54)
[2023-06-24 20:00] VITALS: BP 107/64; PULSE 102; RESP 19; TEMP 98.6
[2023-06-25] MEDS: DIVALPROEX SODIUM 125MG SPRINKLE CAPSULE PO SCH ×3 (05:43→21:49)
[2023-06-25 07:09] LABS: BASOPHILS % 0.3 % (0.0-2.0); EOSINOPHILS % 2.9 % (0.0-5.0); HEMATOCRIT. 26.8 % (42.0-52.0); HEMOGLOBIN. 8.9 g/dL (14.0-18.0); LYMPHOCYTES % 14.6 % (20.0-50.0); MEAN CORPUSCULAR HEMOGLOBIN 30.2 pg (28.0-32.0); MEAN CORPUSCULAR HGB CONC 33.1 g/dL (31.0-37.0); MEAN CORPUSCULAR VOLUME 91.2 fL (80.0-94.0); MEAN PLATELET VOLUME 9.2 fl (7.4-10.4); MONOCYTES % 9.4 % (2.0-8.0); NEUTROPHILS % 72.8 % (40.0-76.0); PLATELET 196 x1000/uL (130-400); RED BLOOD CELL COUNT 2.94 mill/uL (4.7-6.1); RED CELL DISTRIBUTION WIDTH 13.7 % (11.6-14.6); WHITE BLOOD COUNT 8.2 x1000/uL (4.5-11.0)
[2023-06-25 07:21] LABS: POTASSIUM 5.1 mEq/L (3.5-5.1)
[2023-06-25 07:28] LABS: CALCIUM 7.6 mg/dL (8.5-10.1); CREATININE 1.4 mg/dL (0.6-1.3)
[2023-06-25 08:00] VITALS: BP 110/63; PULSE 98; RESP 18; TEMP 97.7
[2023-06-25] MEDS: LIDOCAINE 5% PATCH TOP SCH (09:00)
[2023-06-25] MEDS: DICLOFENAC SODIUM 1% GEL 50GM TOP SCH ×3 (09:00→17:00)
[2023-06-25] MEDS: BENZTROPINE MESYLATE 0.5MG TABLET PO SCH ×2 (11:44→18:30)
[2023-06-25] MEDS: TAMSULOSIN HCL 0.4MG SR CAPSULE PO SCH (11:44)
[2023-06-25] MEDS: DUTASTERIDE 0.5MG CAPSULE PO SCH (11:44)
[2023-06-25] MEDS: OLANZAPINE 10MG TABLET PO SCH ×2 (11:44→18:30)
[2023-06-25] MEDS: MULTIVITAMINS,THER W-MINERALS TABLET PO SCH (11:45)
[2023-06-25] MEDS: FERROUS SULFATE 325MG TABLET PO SCH ×2 (11:45→18:30)
[2023-06-25] MEDS: DOCUSATE SODIUM 250MG CAPSULE PO SCH ×2 (11:45→17:00)
[2023-06-25 21:20] VITALS: BP 136/79; PULSE 97; RESP 18; TEMP 97.9
[2023-06-26] MEDS: DIVALPROEX SODIUM 125MG SPRINKLE CAPSULE PO SCH ×3 (05:49→21:07)
[2023-06-26 08:00] VITALS: BP 113/66; PULSE 82; RESP 17; TEMP 97.2
[2023-06-26] MEDS: LIDOCAINE 5% PATCH TOP SCH (09:41)
[2023-06-26] MEDS: DICLOFENAC SODIUM 1% GEL 50GM TOP SCH ×3 (09:41→17:00)
[2023-06-26] MEDS: OLANZAPINE 10MG TABLET PO SCH ×2 (09:41→19:25)
[2023-06-26] MEDS: TAMSULOSIN HCL 0.4MG SR CAPSULE PO SCH (09:42)
[2023-06-26] MEDS: DOCUSATE SODIUM 250MG CAPSULE PO SCH ×2 (09:42→19:24)
[2023-06-26] MEDS: BENZTROPINE MESYLATE 0.5MG TABLET PO SCH ×2 (09:43→19:25)
[2023-06-26] MEDS: MULTIVITAMINS,THER W-MINERALS TABLET PO SCH (09:43)
[2023-06-26] MEDS: FERROUS SULFATE 325MG TABLET PO SCH ×2 (09:43→19:25)
[2023-06-26] MEDS: DUTASTERIDE 0.5MG CAPSULE PO SCH (09:43)
[2023-06-26 20:00] VITALS: BP 104/61; PULSE 87; RESP 18; TEMP 97.9
[2023-06-27] MEDS: DIVALPROEX SODIUM 125MG SPRINKLE CAPSULE PO SCH ×3 (05:09→22:21)
[2023-06-27 07:09] LABS: BASOPHILS % 0.3 % (0.0-2.0); EOSINOPHILS % 2.3 % (0.0-5.0); HEMATOCRIT. 27.7 % (42.0-52.0); HEMOGLOBIN. 9.2 g/dL (14.0-18.0); LYMPHOCYTES % 20.4 % (20.0-50.0); MEAN CORPUSCULAR HEMOGLOBIN 30.2 pg (28.0-32.0); MEAN CORPUSCULAR HGB CONC 33.2 g/dL (31.0-37.0); MEAN CORPUSCULAR VOLUME 91.1 fL (80.0-94.0); MEAN PLATELET VOLUME 9.3 fl (7.4-10.4); MONOCYTES % 9.7 % (2.0-8.0); NEUTROPHILS % 67.3 % (40.0-76.0); PLATELET 167 x1000/uL (130-400); RED BLOOD CELL COUNT 3.04 mill/uL (4.7-6.1); RED CELL DISTRIBUTION WIDTH 13.7 % (11.6-14.6); WHITE BLOOD COUNT 7.1 x1000/uL (4.5-11.0)
[2023-06-27 08:00] VITALS: BP 100/60; PULSE 82; RESP 20; TEMP 97.2
[2023-06-27 08:33] LABS: CHLORIDE 105 mEq/L (98-107); INDEX HEMOLYSI 1 (1-3); INDEX ICTERIC 1 (1-4); INDEX LIPEMIC 1 (1-3); POTASSIUM 4.5 mEq/L (3.5-5.1); SODIUM 137 mEq/L (136-145)
[2023-06-27 08:47] LABS: ALANINE AMINOTRANSFERASE 10 IU/L (13-61); ALBUMIN 2.4 g/dL (3.4-5.0); ASPARTATE AMINOTRANSFERASE 15 IU/L (15-37); BILIRUBIN TOTAL 0.4 mg/dL (0.1-1.0); CALCIUM 8.8 mg/dL (8.5-10.1); CARBON DIOXIDE 29 mEq/L (21-32); CREATININE 1.2 mg/dL (0.6-1.3); GLUCOSE 98 mg/dL (70-105); PROTEIN TOTAL 6.3 g/dL (6.0-8.3); UREA NITROGEN BLOOD 35 mg/dL (7-21)
[2023-06-27] MEDS: MULTIVITAMINS,THER W-MINERALS TABLET PO SCH (08:57)
[2023-06-27] MEDS: FERROUS SULFATE 325MG TABLET PO SCH ×2 (08:57→18:13)
[2023-06-27] MEDS: OLANZAPINE 10MG TABLET PO SCH ×2 (08:57→18:12)
[2023-06-27] MEDS: DUTASTERIDE 0.5MG CAPSULE PO SCH (08:59)
[2023-06-27] MEDS: TAMSULOSIN HCL 0.4MG SR CAPSULE PO SCH (08:59)
[2023-06-27] MEDS: DOCUSATE SODIUM 250MG CAPSULE PO SCH ×2 (08:59→18:12)
[2023-06-27] MEDS: DICLOFENAC SODIUM 1% GEL 50GM TOP SCH ×3 (09:00→17:00)
[2023-06-27] MEDS: LIDOCAINE 5% PATCH TOP SCH (09:03)
[2023-06-27] MEDS: BENZTROPINE MESYLATE 0.5MG TABLET PO SCH ×2 (09:12→18:13)
[2023-06-27 20:00] VITALS: BP 96/53; PULSE 101; RESP 16; TEMP 98.1
[2023-06-28] MEDS: DIVALPROEX SODIUM 125MG SPRINKLE CAPSULE PO SCH ×3 (06:03→21:43)
[2023-06-28 08:00] VITALS: BP 140/69; PULSE 82; RESP 18; TEMP 97.7
[2023-06-28] MEDS: DOCUSATE SODIUM 250MG CAPSULE PO SCH ×2 (08:24→16:59)
[2023-06-28] MEDS: OLANZAPINE 10MG TABLET PO SCH ×2 (08:24→16:59)
[2023-06-28] MEDS: DUTASTERIDE 0.5MG CAPSULE PO SCH (08:24)
[2023-06-28] MEDS: MULTIVITAMINS,THER W-MINERALS TABLET PO SCH (08:24)
[2023-06-28] MEDS: TAMSULOSIN HCL 0.4MG SR CAPSULE PO SCH (08:24)
[2023-06-28] MEDS: BENZTROPINE MESYLATE 0.5MG TABLET PO SCH ×2 (08:25→16:59)
[2023-06-28] MEDS: DICLOFENAC SODIUM 1% GEL 50GM TOP SCH ×3 (08:25→17:00)
[2023-06-28] MEDS: FERROUS SULFATE 325MG TABLET PO SCH ×2 (08:25→17:00)
[2023-06-28] MEDS: LIDOCAINE 5% PATCH TOP SCH (08:25)
[2023-06-28 20:00] VITALS: BP 101/53; PULSE 104; RESP 17; TEMP 97.9
[2023-06-29] MEDS: DIVALPROEX SODIUM 125MG SPRINKLE CAPSULE PO SCH ×3 (06:21→21:48)
[2023-06-29 08:00] VITALS: BP 123/75; PULSE 94; RESP 20; TEMP 96.2
[2023-06-29] MEDS: TAMSULOSIN HCL 0.4MG SR CAPSULE PO SCH (08:31)
[2023-06-29] MEDS: DUTASTERIDE 0.5MG CAPSULE PO SCH (08:31)
[2023-06-29] MEDS: FERROUS SULFATE 325MG TABLET PO SCH ×2 (08:31→18:03)
[2023-06-29] MEDS: OLANZAPINE 10MG TABLET PO SCH ×2 (08:31→18:04)
[2023-06-29] MEDS: DOCUSATE SODIUM 250MG CAPSULE PO SCH ×2 (08:31→18:03)
[2023-06-29] MEDS: MULTIVITAMINS,THER W-MINERALS TABLET PO SCH (08:31)
[2023-06-29] MEDS: BENZTROPINE MESYLATE 0.5MG TABLET PO SCH ×2 (08:31→18:03)
[2023-06-29] MEDS: LIDOCAINE 5% PATCH TOP SCH (08:32)
[2023-06-29] MEDS: MICONAZOLE NITRATE 2% OINT 71GM TOP SCH ×2 (08:32→21:00)
[2023-06-29] MEDS: DICLOFENAC SODIUM 1% GEL 50GM TOP SCH ×3 (08:32→17:00)
[2023-06-29 20:00] VITALS: BP 110/65; PULSE 76; RESP 18; TEMP 97.8
[2023-06-30] MEDS: DIVALPROEX SODIUM 125MG SPRINKLE CAPSULE PO SCH ×3 (06:00→22:27)
[2023-06-30 07:04] LABS: BASOPHILS % 0.4 % (0.0-2.0); HEMATOCRIT. 28.5 % (42.0-52.0); HEMOGLOBIN. 9.6 g/dL (14.0-18.0); LYMPHOCYTES % 23.8 % (20.0-50.0); MEAN CORPUSCULAR HEMOGLOBIN 30.8 pg (28.0-32.0); MEAN CORPUSCULAR HGB CONC 33.8 g/dL (31.0-37.0); MEAN CORPUSCULAR VOLUME 90.9 fL (80.0-94.0); MEAN PLATELET VOLUME 9.3 fl (7.4-10.4); MONOCYTES % 9.4 % (2.0-8.0); NEUTROPHILS % 63.4 % (40.0-76.0); PLATELET 174 x1000/uL (130-400); RED BLOOD CELL COUNT 3.13 mill/uL (4.7-6.1); RED CELL DISTRIBUTION WIDTH 13.6 % (11.6-14.6); WHITE BLOOD COUNT 5.7 x1000/uL (4.5-11.0)
[2023-06-30 08:00] VITALS: BP 111/68; PULSE 87; RESP 18; TEMP 97.6
[2023-06-30 08:52] LABS: CALCIUM 8.6 mg/dL (8.5-10.1); CHLORIDE 105 mEq/L (98-107); INDEX HEMOLYSI 1 (1-3); INDEX ICTERIC 1 (1-4); INDEX LIPEMIC 1 (1-3); POTASSIUM 4.5 mEq/L (3.5-5.1); SODIUM 139 mEq/L (136-145)
[2023-06-30 08:57] LABS: CARBON DIOXIDE 29 mEq/L (21-32); CREATININE 1.1 mg/dL (0.6-1.3); GLUCOSE 85 mg/dL (70-105); UREA NITROGEN BLOOD 31 mg/dL (7-21)
[2023-06-30] MEDS: DICLOFENAC SODIUM 1% GEL 50GM TOP SCH ×3 (09:00→17:14)
[2023-06-30] MEDS: MICONAZOLE NITRATE 2% OINT 71GM TOP SCH ×2 (09:00→21:00)
[2023-06-30] MEDS: LIDOCAINE 5% PATCH TOP SCH (09:00)
[2023-06-30] MEDS: DUTASTERIDE 0.5MG CAPSULE PO SCH (09:16)
[2023-06-30] MEDS: FERROUS SULFATE 325MG TABLET PO SCH ×2 (09:16→17:12)
[2023-06-30] MEDS: DOCUSATE SODIUM 250MG CAPSULE PO SCH ×2 (09:16→17:12)
[2023-06-30] MEDS: MULTIVITAMINS,THER W-MINERALS TABLET PO SCH (09:17)
[2023-06-30] MEDS: OLANZAPINE 10MG TABLET PO SCH ×2 (09:17→17:14)
[2023-06-30] MEDS: BENZTROPINE MESYLATE 0.5MG TABLET PO SCH ×2 (09:17→17:12)
[2023-06-30] MEDS: TAMSULOSIN HCL 0.4MG SR CAPSULE PO SCH (09:18)
[2023-06-30 20:00] VITALS: BP 91/40; PULSE 89; RESP 18; TEMP 97.9
[2023-07-01] MEDS: DIVALPROEX SODIUM 125MG SPRINKLE CAPSULE PO SCH ×3 (07:08→21:21)
[2023-07-01 08:00] VITALS: BP 120/56; PULSE 86; RESP 19; TEMP 96.7
[2023-07-01] MEDS: MICONAZOLE NITRATE 2% OINT 71GM TOP SCH ×2 (09:00→21:22)
[2023-07-01] MEDS: LIDOCAINE 5% PATCH TOP SCH (09:00)
[2023-07-01] MEDS: DICLOFENAC SODIUM 1% GEL 50GM TOP SCH ×3 (09:00→20:00)
[2023-07-01] MEDS: DOCUSATE SODIUM 250MG CAPSULE PO SCH ×2 (11:55→18:29)
[2023-07-01] MEDS: BENZTROPINE MESYLATE 0.5MG TABLET PO SCH ×2 (11:55→18:29)
[2023-07-01] MEDS: DUTASTERIDE 0.5MG CAPSULE PO SCH (11:55)
[2023-07-01] MEDS: FERROUS SULFATE 325MG TABLET PO SCH ×2 (11:56→18:29)
[2023-07-01] MEDS: MULTIVITAMINS,THER W-MINERALS TABLET PO SCH (11:56)
[2023-07-01] MEDS: OLANZAPINE 10MG TABLET PO SCH ×2 (11:56→18:29)
[2023-07-01] MEDS: TAMSULOSIN HCL 0.4MG SR CAPSULE PO SCH (11:57)
[2023-07-01 20:00] VITALS: BP 117/57; PULSE 86; RESP 16; TEMP 98.1
[2023-07-02] MEDS: DIVALPROEX SODIUM 125MG SPRINKLE CAPSULE PO SCH (05:39)
[2023-07-02 08:00] VITALS: BP 125/66; PULSE 86; RESP 19; TEMP 97.1
[2023-07-02 09:00] VITALS: BP 125/66; RESP 19
[2023-07-02] MEDS: LIDOCAINE 5% PATCH TOP SCH (09:00)
[2023-07-02 09:46] VITALS: PULSE 86
[2023-07-02] MEDS: MULTIVITAMINS,THER W-MINERALS TABLET PO SCH (09:46)
[2023-07-02] MEDS: DUTASTERIDE 0.5MG CAPSULE PO SCH (09:46)
[2023-07-02] MEDS: BENZTROPINE MESYLATE 0.5MG TABLET PO SCH (09:46)
[2023-07-02] MEDS: TAMSULOSIN HCL 0.4MG SR CAPSULE PO SCH (09:46)
[2023-07-02] MEDS: FERROUS SULFATE 325MG TABLET PO SCH (09:46)
[2023-07-02] MEDS: DOCUSATE SODIUM 250MG CAPSULE PO SCH (09:46)
[2023-07-02] MEDS: OLANZAPINE 10MG TABLET PO SCH (09:46)
== END 2023-07-02 14:10 | DRG 64 ==
PROVIDERS: ADMIT Physical Medicine & Rehabilitation Spinal Cord Injury Medicine; ATTEND Internal Medicine
DX: I63.29 Cerebral infarction due to unspecified occlusion or stenosis of other precerebral arteries (principal); E43 Unspecified severe protein-calorie malnutrition; S72.092A Other fracture of head and neck of left femur, initial encounter for closed fracture; G93.41 Metabolic encephalopathy; I50.30 Unspecified diastolic (congestive) heart failure; N13.6 Pyonephrosis; N17.9 Acute kidney failure, unspecified; I69.391 Dysphagia following cerebral infarction; D72.829 Elevated white blood cell count, unspecified; I69.322 Dysarthria following cerebral infarction; G40.909 Epilepsy, unspecified, not intractable, without status epilepticus; D64.9 Anemia, unspecified; E87.5 Hyperkalemia; F20.9 Schizophrenia, unspecified; N40.0 Benign prostatic hyperplasia without lower urinary tract symptoms; R74.01 Elevation of levels of liver transaminase levels; R26.9 Unspecified abnormalities of gait and mobility; E03.9 Hypothyroidism, unspecified; R73.9 Hyperglycemia, unspecified; R62.50 Unspecified lack of expected normal physiological development in childhood; R53.1 Weakness; R74.8 Abnormal levels of other serum enzymes; E78.5 Hyperlipidemia, unspecified; X58.XXXA Exposure to other specified factors, initial encounter; F79 Unspecified intellectual disabilities; I69.320 Aphasia following cerebral infarction; Z91.81 History of falling; Y93.89 Activity, other specified; Y92.89 Other specified places as the place of occurrence of the external cause; Y99.8 Other external cause status; Z68.24 Body mass index [BMI] 24.0-24.9, adult
CPT/HCPCS: 36415; 71045; 80048; 80053; 81003; 82306; 82607; 82746; 84134; 84145; 85025; 87426; 92523; 92610; 93970; 97110; 97116; 97161; 97166; 97530; 97535; A6261